=== PATIENT | female | born 1980 | race Caucasian/White ===

== ENCOUNTER 2019-01-07 18:17 | Emergency (ER) | payer MEDICARE ==
[2019-01-07] MEDS ORDERED: Lorazepam 2 MG/ML VIAL ONE (18:29)
--- NOTE | 2019-01-07 18:52 | CT ---
FCT Brain WO Con: 01/07/2019 6:23 PM CLINICAL HISTORY: Seizure, history of brain tumor. COMPARISON: None. FINDINGS: Hemorrhage: None. Ventricular system: Decompressed. There is a right frontoparietal approach ventriculostomy, with tip at midline interposed between region of lateral and third ventricles. Cerebral parenchyma: Mild hypoattenuation of right centrum semiovale, adjacent the traversing ventric ular catheter. Postoperative hypodensity of the cerebellar parenchyma Midline shift: None. Mass: No mass effect. Calvarium: Evidence of prior partial occipital craniectomy. Visualized Paranasal sinuses: Clear. IMPRESSION: Postoperative head CT, with postsurgical hypoattenuation of the cerebellar parenchyma and overlying o ccipital craniectomy site. Right frontoparietal approach ventricular catheter is present, with a decompressed ventricular system .
--- NOTE | 2019-01-07 18:54 | CT ---
FCT cervical spine noncontrast: Date: 01/07/2019 HISTORY: cervical trauma FINDINGS: Alignment is normal. Vertebral body heights are maintained. No prevertebral soft tissue swelling. No perched or jumped facets. No fracture is identified. Large osseous defect at occipital bone centered at midline. IMPRESSION: 1. No acute traumatic fracture or acute traumatic subluxation. 2. Status post occipital craniectomy.
[2019-01-07 19:13] LABS: #Basophils 0.1 thou/uL (0.0-0.2); #Lymphocytes 1.3 thou/uL (1.20-3.40); #Monocytes 0.6 thou/uL (0.11-0.59); #Neutrophils 5.3 thou/uL (1.40-6.50); %Basophils 0.8 % (0.0-1.0); %Eosinophils 0.3 % (0.0-10.0); %Lymphocytes 18.4 % (21.0-51.0); %Monocytes 8.3 % (0.0-10.0); %Neutrophils 72.3 % (42.0-75.0); Hemoglobin 13.1 g/dL (12.0-16.0); Mean Corpuscular HGB CONC 33.8 g/dL (32.0-36.0); Mean Corpuscular Hemoglobin 31.9 pg (27.0-31.0); Mean Corpuscular Volume 94.4 fL (78.0-98.0); Mean Platelet Volume 6.5 fL (7.4-10.4); Platelet Count 265 thou/uL (130-400); RBC Distribution Width 11.1 % (11.5-14.5); Red Blood Cell (RBC) Count 4.11 mill/uL (4.20-5.40); White Blood Cell (WBC) Count 7.3 thou/uL (4.8-10.8)
[2019-01-07 19:24] LABS: BHCG - Serum Negative (NEGATIVE); Pregs Control Background? CLEAR/WHITE (CLR/WHITE); Pregs Control Bar Appear? YES (CONTROL BAR)
[2019-01-07 19:27] LABS: ALT (SGPT) 8 U/L (8-55); AST (SGOT) 13 U/L (5-34); Albumin 3.9 g/dL (3.5-5.0); Alkaline Phosphatase 86 U/L (40-150); Anion Gap 15 mmol/L (10-20); BUN (Urea Nitrogen) 13 mg/dL (7.0-18.7); Bilirubin, Total 0.2 mg/dL (0.2-1.2); Calc. Creatinine Clearance 0 mL/min (70-130); Calcium 8.5 mg/dL (7.8-10.44); Carbon Dioxide 24 mmol/L (22-29); Chloride 106 mmol/L (98-107); Estimated GFR-MDRD Greater than 90; Globulin 2.9 g/dL (2.4-3.5); Glucose 81 mg/dL (70-105); Magnesium 2.2 mg/dL (1.6-2.6); Potassium 3.8 mmol/L (3.5-5.1); Protein, Total 6.8 g/dL (6.0-8.3); Sodium 141 mmol/L (136-145)
[2019-01-07 19:42] LABS: Thyroid Stimulating Hormone 0.7076 uIU/mL (0.35-4.94)
[2019-01-07 20:27] LABS: Bilirubin Negative (Negative); Blood, Urine Negative (Negative); Clarity Clear (Clear); Glucose, Urine (Dipstick) Negative (Negative); Leukocyte Negative (Negative); Nitrite Negative (Negative); Protein, Urine (Dipstick) Negative (Neg-Trace); Specific Gravity, Urine 1.015 (1.005-1.030)
[2019-01-07 20:32] LABS: Amphetamine Not Detected (NotDetected); Cocaine Metabolite Screen Not Detected (NotDetected); Methamphetamine Not Detected (NotDetected); Opiate Screen Not Detected (NotDetected); Phencyclidine (PCP) Not Detected (NotDetected); THC/Cannabinoid Screen Not Detected (NotDetected)
[2019-01-07 20:33] LABS: Barbiturates Screen Not Detected (NotDetected); Benzodiazepine Screen Detected (NotDetected); Medtox Control Line Valid? VALID (VALID); Methadone Not Detected (NotDetected); Oxycodone Screen Not Detected (NotDetected); Tricyclic Screen Not Detected (NotDetected)
[2019-01-07] MEDS ORDERED: levETIRAcetam 500 MG TAB ONE (20:33)
[2019-01-08] MEDS ORDERED: Lorazepam 2 MG/ML VIAL ONE (04:02)
== END 2019-01-08 04:51 | disposition short-term general hospital (02) ==
LOC: MADERS 18:17
DX: G40.909 Epilepsy, unspecified, not intractable, without status epilepticus (principal); F41.9 Anxiety disorder, unspecified; Z79.899 Other long term (current) drug therapy
CPT/HCPCS: 70450; 72125; 80053; 80306; 81003; 83605; 83735; 84443; 84703; 85025; 96374; 96376; J2060

== ENCOUNTER 2019-02-26 10:07 | Emergency (ER) | payer MEDICARE, MEDICAID ==
--- NOTE | 2019-02-26 12:05 | RAD ---
SHUNTOGRAM: HISTORY: Headache, nausea, and vomiting. FINDINGS: Comparison is made with the exam of 01/08/2019. The right-sided ventriculoperitoneal shunt tubing is intact. It traverses into the right side of the neck, chest, and abdomen to the left in the upper pelvis with tip directed superiorly to the right o f midline. The heart size is normal. The lungs are clear. The bowel gas pattern is unremarkable. POS: [facility]
[2019-02-26] MEDS ORDERED: Morphine 4 MG/ML VIAL ONE (12:50)
[2019-02-26] MEDS ORDERED: Prochlorperazine 10 MG/2 ML VIAL ONE (12:51)
[2019-02-26] MEDS ORDERED: Ketorolac Tromethamine 30 MG/ML VIAL ONE (12:51)
[2019-02-26] MEDS ORDERED: Sodium Chloride 0.9% 1,000 ML ONE (12:51)
[2019-02-26 13:09] LABS: #Basophils 0.1 thou/uL (0.0-0.2); #Eosinphils 0.1 thou/uL (0.0-0.7); #Lymphocytes 1.6 thou/uL (1.20-3.40); #Monocytes 0.4 thou/uL (0.11-0.59); #Neutrophils 3.8 thou/uL (1.40-6.50); %Basophils 1.1 % (0.0-1.0); %Lymphocytes 26.5 % (21.0-51.0); %Monocytes 6.5 % (0.0-10.0); %Neutrophils 63.9 % (42.0-75.0); Hemoglobin 13.8 g/dL (12.0-16.0); Mean Corpuscular HGB CONC 34.1 g/dL (32.0-36.0); Mean Corpuscular Hemoglobin 31.8 pg (27.0-31.0); Mean Corpuscular Volume 93.5 fL (78.0-98.0); Mean Platelet Volume 7.6 fL (7.4-10.4); Platelet Count 210 thou/uL (130-400); RBC Distribution Width 10.9 % (11.5-14.5); Red Blood Cell (RBC) Count 4.35 mill/uL (4.20-5.40)
[2019-02-26 13:20] LABS: BHCG - Serum Negative (NEGATIVE); Pregs Control Background? CLEAR/WHITE (CLR/WHITE); Pregs Control Bar Appear? YES (CONTROL BAR)
[2019-02-26 13:27] LABS: ALT (SGPT) 10 U/L (8-55); AST (SGOT) 13 U/L (5-34); Alkaline Phosphatase 58 U/L (40-150); Anion Gap 14 mmol/L (10-20); BUN (Urea Nitrogen) 7 mg/dL (7.0-18.7); Bilirubin, Total 0.3 mg/dL (0.2-1.2); Calc. Creatinine Clearance 0 mL/min (70-130); Calcium 8.8 mg/dL (7.8-10.44); Carbon Dioxide 24 mmol/L (22-29); Chloride 105 mmol/L (98-107); Estimated GFR-MDRD Greater than 90; Glucose 91 mg/dL (70-105); Potassium 4.1 mmol/L (3.5-5.1); Sodium 139 mmol/L (136-145)
--- NOTE | 2019-02-26 13:38 | CT ---
CT head noncontrast HISTORY: Headache. COMPARISON: 01/07/2019. FINDINGS: There is no evidence of acute intracranial hemorrhage or infarct. Ventricles remain decompr essed with a right frontal ventriculostomy catheter tip at midline. Postoperative changes of the occiput and cerebellum are similar in appearance to the prior exam. No mass effect or shift of midlin e structures. IMPRESSION: Postoperative changes, stable. No evidence of shunt malfunction. No acute intracranial ab normalities are demonstrated.
== END 2019-02-26 14:33 | disposition short-term general hospital (02) ==
LOC: MADERS 10:07
DX: R51 Headache (principal); R27.0 Ataxia, unspecified; R11.2 Nausea with vomiting, unspecified; Z98.2 Presence of cerebrospinal fluid drainage device
CPT/HCPCS: 70450; 75809; 80053; 84443; 84703; 85025; 96361; 96374; 96375; J0780; J1885; J2270; J7050

== ENCOUNTER 2019-06-12 22:10 | Emergency (ER) | payer MEDICARE, MEDICAID ==
[2019-06-12] MEDS ORDERED: Ondansetron PF 4 MG/2 ML Vial ONE (22:21)
[2019-06-12] MEDS ORDERED: Fentanyl 100 MCG/2 ML VIAL ONE (22:21)
[2019-06-12] MEDS ORDERED: Sodium Chloride 0.9% 1,000 ML ONE (22:21)
[2019-06-12 22:38] LABS: #Basophils 0.1 thou/uL (0.0-0.2); #Eosinphils 0.1 thou/uL (0.0-0.7); #Lymphocytes 2.1 thou/uL (1.20-3.40); #Monocytes 0.5 thou/uL (0.11-0.59); #Neutrophils 4.1 thou/uL (1.40-6.50); %Basophils 0.9 % (0.0-1.0); %Eosinophils 1.6 % (0.0-10.0); %Lymphocytes 30.6 % (21.0-51.0); %Monocytes 7.5 % (0.0-10.0); %Neutrophils 59.4 % (42.0-75.0); Hemoglobin 13.5 g/dL (12.0-16.0); Mean Corpuscular HGB CONC 34.7 g/dL (32.0-36.0); Mean Corpuscular Volume 92.4 fL (78.0-98.0); Mean Platelet Volume 7.3 fL (7.4-10.4); Platelet Count 258 thou/uL (130-400); RBC Distribution Width 10.5 % (11.5-14.5); Red Blood Cell (RBC) Count 4.21 mill/uL (4.20-5.40); White Blood Cell (WBC) Count 6.9 thou/uL (4.8-10.8)
[2019-06-12 22:55] LABS: ALT (SGPT) 10 U/L (8-55); AST (SGOT) 10 U/L (5-34); Albumin 3.8 g/dL (3.5-5.0); Alkaline Phosphatase 64 U/L (40-150); Anion Gap 17 mmol/L (10-20); BUN (Urea Nitrogen) 6 mg/dL (7.0-18.7); Bilirubin, Total 0.2 mg/dL (0.2-1.2); Calc. Creatinine Clearance 0 mL/min (70-130); Calcium 8.6 mg/dL (7.8-10.44); Carbon Dioxide 21 mmol/L (22-29); Chloride 107 mmol/L (98-107); Estimated GFR-MDRD Greater than 90; Glucose 98 mg/dL (70-105); Lipase 36 U/L (8-78); Potassium 3.7 mmol/L (3.5-5.1); Protein, Total 6.8 g/dL (6.0-8.3); Sodium 141 mmol/L (136-145)
[2019-06-13 00:19] LABS: Bilirubin Negative (Negative); Clarity Clear (Clear); Glucose, Urine (Dipstick) Negative (Negative); Leukocyte Trace (Negative); Nitrite Negative (Negative); Protein, Urine (Dipstick) Negative (Neg-Trace); Urobilinogen 0.2 mg/dL (Less than 2)
[2019-06-13 00:20] LABS: Bacteria/HPF Rare-Few HPF (None Seen); Blood, Urine Trace (Negative); RBC/HPF 0-3 HPF (0-3); Squamous Epithelial 0-3 HPF (0-3); WBC/HPF 0-3 HPF (0-3)
[2019-06-13 00:21] LABS: Pregnancy Test - Urine (BHCG) Negative (Negative); Pregu Control Background? CLEAR/WHITE (CLR/WHITE); Pregu Control Bar Appear? YES (CONTROL BAR)
--- NOTE | 2019-06-13 07:50 | CT ---
PRELIMINARY REPORT/[facility]/EMERGENCY AFTER HOURS PROCEDURE: EXAM: CT Head Without Contrast EXAM DATE/TIME: 06/13/2019 12:29 AM CLINICAL HISTORY: 38 years old, female; Patient HX: PT has shunt dizziness TECHNIQUE: Imaging protocol: Computed tomography of the head without contrast. Radiation optimization: All CT scans at this facility use at least one of these dose optimization zulema hniques: automated exposure control; mA and/or kV adjustment per patient size (includes targeted exam s where dose is matched to clinical indication); or iterative reconstruction. COMPARISON: No relevant prior studies available. FINDINGS: Tubes, catheters and devices: There is a right ventriculostomy approach catheter, terminating in the region of the left thalamus and foramen of Monro. Brain: Normal. No hemorrhage. Unremarkable white matter. No mass effect. Encephalomalacia is seen in the cerebellar vermis. There is no large territorial cerebral infarct. Ventricles: Normal. No ventriculomegaly. Bones/joints: Status post suboccipital craniectomy. Sinuses: Visualized sinuses are unremarkable. No fluid levels. Mastoid air cells: Visualized mastoid air cells are well aerated. Soft tissues: Unremarkable. IMPRESSION: No acute intracranial hemorrhage, mass effect or midline shift. Thank you for allowing us to participate in the care of your patient. Dictated and Authenticated by: Erica Centeno MD 06/13/2019 12:53 AM Central Time ([place] & [place]) FINAL REPORT BRAIN CT WITHOUT IV CONTRAST: EMERGENT AFTER HOURS EXAM TIME: 12:30 a.m. DATE: 06/13/2019 COMPARISON: 02/26/2019. FINDINGS: Postoperative changes in the right occipital region with a right-sided ventriculostomy tube. Posteri or fossa encephalomalacia. No mass or bleed or other acute process. Stable from prior study. This report is in agreement with the preliminary report by Yash. POS: [facility]
--- NOTE | 2019-06-13 08:44 | RAD ---
SHUNTOGRAM 5 IMAGES: INDICATION: Abdominal pain. Assess ventriculoperitoneal shunt tubing. FINDINGS: Shunt tubing is seen traversing the right neck and right chest within the abdomen. Tubing appears in tact. IMPRESSION: Intact ventriculoperitoneal shunt tubing. POS: [facility]
== END 2019-06-13 01:25 | disposition home or self-care (01) ==
LOC: MADERS 22:10
DX: K52.9 Noninfective gastroenteritis and colitis, unspecified (principal); E86.0 Dehydration; F41.9 Anxiety disorder, unspecified; D49.6 Neoplasm of unspecified behavior of brain; R11.2 Nausea with vomiting, unspecified
CPT/HCPCS: 70450; 75809; 80053; 81003; 81015; 81025; 83690; 85025; 96361; 96374; 96375; J2405; J3010; J7050

== ENCOUNTER 2019-09-06 17:34 | Outpatient (CLI) | payer MEDICARE, MEDICAID | END 2019-09-06 17:35 | disposition home or self-care (01) | LOC: MADLAB 17:34 | PROVIDERS: ATTEND Family Medicine | DX: R56.9 Unspecified convulsions (principal) | CPT/HCPCS: 36415; 80164 ==

== ENCOUNTER 2019-11-17 18:58 | Emergency (ER) | payer MEDICAID, MEDICARE ==
[2019-11-17 19:49] LABS: Bilirubin Negative (Negative); Blood, Urine Negative (Negative); Glucose, Urine (Dipstick) Negative (Negative); Leukocyte Moderate (Negative); Nitrite Negative (Negative); Protein, Urine (Dipstick) 30 mg/dL (Neg-Trace)
[2019-11-17 19:50] LABS: Clarity Cloudy (Clear); Pregnancy Test - Urine (BHCG) Negative (Negative); Pregu Control Background? CLEAR/WHITE (CLR/WHITE); Pregu Control Bar Appear? YES (CONTROL BAR)
[2019-11-17 19:53] LABS: RBC/HPF 0-3 HPF (0-3)
[2019-11-17 19:54] LABS: Bacteria/HPF 2+ HPF (None Seen); Mucous/LPF 2+ LPF (<2+)
[2019-11-17] MEDS ORDERED: Sodium Chloride 0.9% 1,000 ML ONE (19:58)
[2019-11-17] MEDS ORDERED: Ondansetron PF 4 MG/2 ML Vial ONE (19:58)
[2019-11-17 20:11] LABS: #Eosinphils 0.1 thou/uL (0.0-0.7); #Lymphocytes 1.5 thou/uL (1.20-3.40); #Monocytes 0.5 thou/uL (0.11-0.59); #Neutrophils 4.1 thou/uL (1.40-6.50); %Basophils 0.8 % (0.0-1.0); %Lymphocytes 24.1 % (21.0-51.0); %Monocytes 7.9 % (0.0-10.0); %Neutrophils 66.3 % (42.0-75.0); Hemoglobin 13.7 g/dL (12.0-16.0); Mean Corpuscular HGB CONC 32.7 g/dL (32.0-36.0); Mean Corpuscular Hemoglobin 31.2 pg (27.0-31.0); Mean Corpuscular Volume 95.3 fL (78.0-98.0); Mean Platelet Volume 7.9 fL (7.4-10.4); Platelet Count 257 thou/uL (130-400); RBC Distribution Width 10.7 % (11.5-14.5); White Blood Cell (WBC) Count 6.1 thou/uL (4.8-10.8)
--- NOTE | 2019-11-17 20:17 | CT ---
Exam: Head CT without contrast HISTORY: Headache. Ventriculoperitoneal shunt. COMPARISON: 06/13/2019 FINDINGS: Hemorrhage: No intraparenchymal hemorrhage or extra-axial hematoma. Brain parenchyma: Cortical dawn-white matter differentiation is preserved. No mass effect or midline shift. Basilar cisterns are patent.Stable changes involving the cerebellar vermis as well as the cerebellar hemispheres. Stable postoperative changes with regards to the occipital calvarium. Ventricular system: Ventricular system appears to be decompressed. There is a stable position ventric uloperitoneal shunt catheter, via the right frontal approach. There is associated encephalomalacia along the tract of the ventricle peritoneal shunt catheter. Evidence of malacia is unchanged. Calvarium: No calvarial fractures. Stable postoperative changes in the occipital calvarium. Sinuses and mastoid air cells: Adequate aeration. IMPRESSION: 1. No significant interval change. Stable postoperative and iatrogenic changes. 2. No evidence of hydrocephalus. The ventricular system appears to be are completely decompressed, si milar to the previous exam. Transcribed Date/Time: 11/17/2019 8:31 PM
[2019-11-17 20:20] LABS: ALT (SGPT) 13 U/L (8-55); AST (SGOT) 12 U/L (5-34); Albumin 4.1 g/dL (3.5-5.0); Alkaline Phosphatase 65 U/L (40-110); Anion Gap 14 mmol/L (10-20); BUN (Urea Nitrogen) 8 mg/dL (7.0-18.7); Bilirubin, Total 0.3 mg/dL (0.2-1.2); Calc. Creatinine Clearance 0 mL/min (70-130); Calcium 9.1 mg/dL (7.8-10.44); Carbon Dioxide 22 mmol/L (22-29); Chloride 107 mmol/L (98-107); Estimated GFR-MDRD Greater than 90; Globulin 2.9 g/dL (2.4-3.5); Glucose 108 mg/dL (70-105); Lipase 18 U/L (8-78); Potassium 3.9 mmol/L (3.5-5.1); Sodium 139 mmol/L (136-145)
[2019-11-17] MEDS ORDERED: Ketorolac Tromethamine 30 MG/ML VIAL ONE (20:27)
[2019-11-17] MEDS ORDERED: Acetaminophen 500 MG TAB ONE (20:32)
[2019-11-17] MEDS ORDERED: Nitrofurantoin Monohyd/M-Cryst 100 MG CAP ONE (20:46)
== END 2019-11-17 21:15 | disposition home or self-care (01) ==
LOC: MADERS 18:58
DX: N39.0 Urinary tract infection, site not specified (principal); R20.2 Paresthesia of skin; F41.9 Anxiety disorder, unspecified; Z79.899 Other long term (current) drug therapy
CPT/HCPCS: 70450; 80053; 81003; 81015; 81025; 83605; 83690; 84443; 85025; 96361; 96374; 96375; J1885; J2405; J7050

== ENCOUNTER 2019-12-20 11:51 | Outpatient (CLI) | payer MEDICARE, MEDICAID ==
[2019-12-20 12:16] LABS: #Basophils 0.1 thou/uL (0.0-0.2); #Eosinphils 0.1 thou/uL (0.0-0.7); #Lymphocytes 1.7 thou/uL (1.20-3.40); #Monocytes 0.5 thou/uL (0.11-0.59); #Neutrophils 4.5 thou/uL (1.40-6.50); %Basophils 0.9 % (0.0-1.0); %Eosinophils 0.9 % (0.0-10.0); %Lymphocytes 24.6 % (21.0-51.0); %Monocytes 7.7 % (0.0-10.0); %Neutrophils 65.9 % (42.0-75.0); Hemoglobin 14.4 g/dL (12.0-16.0); Mean Corpuscular HGB CONC 33.3 g/dL (32.0-36.0); Mean Corpuscular Hemoglobin 31.9 pg (27.0-31.0); Mean Corpuscular Volume 95.7 fL (78.0-98.0); Mean Platelet Volume 7.6 fL (7.4-10.4); Platelet Count 257 thou/uL (130-400); RBC Distribution Width 10.4 % (11.5-14.5); Red Blood Cell (RBC) Count 4.52 mill/uL (4.20-5.40); White Blood Cell (WBC) Count 6.8 thou/uL (4.8-10.8)
== END 2019-12-20 11:52 | disposition home or self-care (01) ==
LOC: MADLABBHPM 11:51
PROVIDERS: ATTEND Family Medicine
DX: R56.9 Unspecified convulsions (principal)
CPT/HCPCS: 36415; 80164; 82746; 85025

== ENCOUNTER 2020-05-25 16:24 | Emergency (ER) | payer MEDICARE, MEDICAID ==
[2020-05-25] MEDS ORDERED: HYDROcodone/Acetaminophen 5/325 mg Tablet ONE (17:00)
--- NOTE | 2020-05-25 17:18 | RAD ---
AP PELVIS: History: Fall, injury, pelvic pain, hip pain. FINDINGS: No acute fracture or dislocation is identified. IMPRESSION: As above. POS: [facility]
--- NOTE | 2020-05-25 17:20 | RAD ---
RADIOGRAPH RIGHT HUMERUS TWO VIEWS: Date: 05-25-2020 History: 39-year-old female with acute traumatic arm pain. FINDINGS: No evidence of fracture of the humerus. No radiopaque foreign body or subcutaneous emphysema. IMPRESSION: Negative. POS: [facility]
== END 2020-05-25 17:45 | disposition home or self-care (01) ==
LOC: MADERS 16:24
DX: S40.011A Contusion of right shoulder, initial encounter (principal); S70.01XA Contusion of right hip, initial encounter; F41.9 Anxiety disorder, unspecified; Z79.899 Other long term (current) drug therapy; W19.XXXA Unspecified fall, initial encounter
CPT/HCPCS: 72170

== ENCOUNTER 2024-03-25 19:28 | Emergency (ER) | payer MEDICARE, MEDICAID ==
[2024-03-25] MEDS ORDERED: Ibuprofen 800 MG TAB ONE (20:24)
== END 2024-03-25 21:00 | disposition home or self-care (01) ==
LOC: MADERS 19:28
DX: S62.316A Displaced fracture of base of fifth metacarpal bone, right hand, initial encounter for closed fracture (principal); R56.9 Unspecified convulsions; W05.0XXA Fall from non-moving wheelchair, initial encounter
CPT/HCPCS: 26605; 26700